=== PATIENT | male | born 1985 | race African-American/Black ===

== ENCOUNTER 2022-02-13 01:07 | Observation (INO) | payer OTHER, SELFPAY ==
[2022-02-13 01:38] VITALS: BMI 31.6
[2022-02-13] MEDS ORDERED: Calcium Carbonate 500 MG ChewTAB PO PRN (01:58)
[2022-02-13] MEDS ORDERED: Senokot S 8.6-50 MG TAB PO PRN (01:58)
[2022-02-13] MEDS ORDERED: Ondansetron PF 4 MG/2 ML Vial IVP PRN (01:58)
[2022-02-13] MEDS ORDERED: Acetaminophen 325 MG TAB PO PRN (01:58)
[2022-02-13] MEDS ORDERED: Ondansetron ODT 4 MG TAB PO PRN (01:58)
[2022-02-13] MEDS ORDERED: Lactated Ringer's 1,000 ML IV SCH (02:30)
[2022-02-13] MEDS: Sodium Chloride 0.9% 1,000 ML IV SCH ×4 (04:00→22:14)
[2022-02-13 04:38] LABS: Hemoglobin 12.9 g/dL (13.5-17.5)
[2022-02-13 04:55] LABS: Anion Gap 14 mmol/L (10-20); BUN (Urea Nitrogen) 34 mg/dL (8.9-20.6); CK (CPK) 332 U/L (30-200); Calc. Creatinine Clearance 91 mL/min (70-130); Calcium 8.8 mg/dL (7.8-10.44); Carbon Dioxide 22 mmol/L (22-29); Chloride 105 mmol/L (98-107); Estimated GFR 48; Glucose 106 mg/dL (70-105); Magnesium 2.3 mg/dL (1.6-2.6); Potassium 3.5 mmol/L (3.5-5.1); Sodium 137 mmol/L (136-145)
[2022-02-13 04:59] LABS: Troponin I Less than 0.010 ng/mL (< 0.028)
[2022-02-13] MEDS: Enoxaparin Sodium 40 MG/0.4 ML SYRINGE SC SCH (10:29)
[2022-02-13] MEDS ORDERED: Zinc Sulfate 220 MG CAP PO SCH (15:30)
[2022-02-13] MEDS ORDERED: Ascorbic Acid 500 mg Chewable Tablet PO SCH (15:30)
[2022-02-13] MEDS: (RENAL) NIRMATRELVIR 150 MG/RITONAVIR 100 MG TABLET PO SCH (20:07)
[2022-02-14] MEDS: Sodium Chloride 0.9% 1,000 ML IV SCH ×3 (00:25→12:50)
[2022-02-14 05:38] LABS: Anion Gap 10 mmol/L (10-20); BUN (Urea Nitrogen) 19 mg/dL (8.9-20.6); Calc. Creatinine Clearance 162 mL/min (70-130); Calcium 8.5 mg/dL (7.8-10.44); Carbon Dioxide 21 mmol/L (22-29); Chloride 111 mmol/L (98-107); Estimated GFR 96; Glucose 80 mg/dL (70-105); Hemoglobin 11.7 g/dL (13.5-17.5); Mean Corpuscular Hemoglobin 31.9 pg (27.0-33.0); Mean Corpuscular Volume 93.7 fl (81.2-95.1); Mean Platelet Volume 10.1 fl (7.4-10.4); Platelet Count 198 10x3/uL (150-450); Potassium 4.2 mmol/L (3.5-5.1); RBC Distribution Width 12.8 % (11.5-14.5); Red Blood Cell (RBC) Count 3.67 10x6/uL (4.32-5.72); Sodium 138 mmol/L (136-145); White Blood Cell (WBC) Count 4.5 10x3/uL (3.5-10.5)
[2022-02-14 05:46] LABS: Troponin I Less than 0.010 ng/mL (< 0.028)
[2022-02-14 06:35] LABS: MDiff Complete? YES
[2022-02-14 06:38] LABS: Eosinophils 2 % (0-10); Lymphocytes 58 % (21-51); Monocytes 2 % (0-10); Neutrophil 38 % (42-75)
[2022-02-14 06:40] LABS: Platelet Morphology Comment Appears Adequate; RBC Morphology Normal
[2022-02-14] MEDS: (RENAL) NIRMATRELVIR 150 MG/RITONAVIR 100 MG TABLET PO SCH (08:53)
[2022-02-14] MEDS: Enoxaparin Sodium 40 MG/0.4 ML SYRINGE SC SCH (08:55)
[2022-02-14] MEDS ORDERED: Ascorbic Acid 500 mg Chewable Tablet PO SCH (09:00)
[2022-02-14] MEDS ORDERED: Zinc Sulfate 220 MG CAP PO SCH (09:00)
[2022-02-14 12:46] VITALS: BP 118/72; TEMP 97.8
== END 2022-02-14 12:00 | disposition home or self-care (01) ==
LOC: CSHTELE 01:07
PROVIDERS: ADMIT Internal Medicine; ATTEND Internal Medicine
DX: T67.5XXA Heat exhaustion, unspecified, initial encounter (principal); N17.9 Acute kidney failure, unspecified; U07.1 COVID-19; X30.XXXA Exposure to excessive natural heat, initial encounter
CPT/HCPCS: 36415; 80048; 82550; 82728; 83735; 84484; 85014; 85018; 85025; 85379; 86140; 96372; G0378; J1650; J7050; J7120; U0003; U0005